=== PATIENT | male | born 1940 | race Caucasian/White ===

== ENCOUNTER 2018-06-08 10:16 | Outpatient (CLI) | payer MEDICARE, BC | END 2018-06-08 10:17 | disposition home or self-care (01) | LOC: NAV LABSP 10:16 | PROVIDERS: ATTEND Internal Medicine | DX: F03.90 Unspecified dementia, unspecified severity, without behavioral disturbance, psychotic disturbance, mood disturbance, and anxiety (principal) | CPT/HCPCS: 36415; 82140 ==

== ENCOUNTER 2018-06-15 07:55 | Outpatient (CLI) | payer MEDICARE, BC | END 2018-06-15 07:56 | disposition home or self-care (01) | LOC: NAV LABSP 07:55 | PROVIDERS: ATTEND Internal Medicine | DX: E11.69 Type 2 diabetes mellitus with other specified complication (principal); I10 Essential (primary) hypertension; G30.9 Alzheimer's disease, unspecified | CPT/HCPCS: 36415; 82140 ==

== ENCOUNTER 2018-08-08 08:16 | Outpatient (CLI) | payer MEDICARE, BC ==
[2018-08-08 08:53] LABS: Calc. Creatinine Clearance 0 mL/min (70-130)
[2018-08-08 08:54] LABS: Anion Gap 10 mmol/L (10-20); BUN (Urea Nitrogen) 13 mg/dL (8.4-25.7); Calcium 9.6 mg/dL (7.8-10.44); Carbon Dioxide 31 mmol/L (23-31); Chloride 102 mmol/L (98-107); Estimated GFR-MDRD Greater than 90; Glucose 82 mg/dL (83-110); Potassium 3.9 mmol/L (3.5-5.1); Sodium 139 mmol/L (136-145)
[2018-08-08 09:17] LABS: Bilirubin Negative (Negative); Blood, Urine Negative (Negative); Clarity Clear (Clear); Glucose, Urine (Dipstick) 250 mg/dL (Negative); Leukocyte Small (Negative); Nitrite Negative (Negative); Protein, Urine (Dipstick) Negative (Neg-Trace); Specific Gravity, Urine 1.015 (1.005-1.030); Urobilinogen 0.2 mg/dL (0.2-1.0)
[2018-08-08 09:20] LABS: #Basophils 0.2 thou/uL (0.0-0.2); #Eosinphils 1.7 thou/uL (0.0-0.7); #Lymphocytes 2.2 thou/uL (1.20-3.40); #Monocytes 1.2 thou/uL (0.11-0.59); #Neutrophils 5.1 thou/uL (1.40-6.50); %Basophils 1.7 % (0.0-1.0); %Eosinophils 16.2 % (0.0-10.0); %Lymphocytes 20.9 % (21.0-51.0); %Monocytes 11.8 % (0.0-10.0); %Neutrophils 49.4 % (42.0-75.0); Hemoglobin 13.1 g/dL (14.0-18.0); Mean Corpuscular HGB CONC 33.1 g/dL (32.0-36.0); Mean Corpuscular Hemoglobin 29.8 pg (27.0-31.0); Mean Corpuscular Volume 90.2 fL (78.0-98.0); Mean Platelet Volume 10.7 fL (7.4-10.4); Platelet Count 233 thou/uL (130-400); RBC Distribution Width 11.8 % (11.5-14.5); Red Blood Cell (RBC) Count 4.38 mill/uL (4.70-6.10); White Blood Cell (WBC) Count 10.3 thou/uL (4.8-10.8)
[2018-08-08 11:55] LABS: Bacteria/HPF Rare-Few HPF (None Seen); Other Microscopic Description NO; RBC/HPF None Seen HPF (0-3); Squamous Epithelial None Seen HPF (0-3); WBC/HPF 0-3 HPF (0-3)
[2018-08-08 12:40] LABS: Valproic Acid (Depakene) 48.3 ug/mL (50.0-100.0)
== END 2018-08-08 08:17 | disposition home or self-care (01) ==
LOC: NAV LAB 08:16
PROVIDERS: ATTEND Internal Medicine
DX: G30.9 Alzheimer's disease, unspecified (principal); E11.9 Type 2 diabetes mellitus without complications; I10 Essential (primary) hypertension
CPT/HCPCS: 36415; 80048; 80164; 81003; 81015; 82140; 85025; 87086

== ENCOUNTER 2018-09-27 14:36 | Outpatient (CLI) | payer MEDICARE, BC, MEDICAID ==
[2018-09-27 21:33] LABS: #Basophils 0.1 thou/uL (0.0-0.2); #Eosinphils 0.1 thou/uL (0.0-0.7); #Lymphocytes 2.3 thou/uL (1.20-3.40); #Monocytes 1.8 thou/uL (0.11-0.59); #Neutrophils 13.2 thou/uL (1.40-6.50); %Basophils 0.3 % (0.0-1.0); %Eosinophils 0.3 % (0.0-10.0); %Lymphocytes 13.2 % (21.0-51.0); %Monocytes 10.2 % (0.0-10.0); Hemoglobin 14.5 g/dL (14.0-18.0); Mean Corpuscular Hemoglobin 31.3 pg (27.0-31.0); Mean Platelet Volume 10.8 fL (7.4-10.4); Platelet Count 154 thou/uL (130-400); RBC Distribution Width 12.8 % (11.5-14.5); Red Blood Cell (RBC) Count 4.63 mill/uL (4.70-6.10); White Blood Cell (WBC) Count 17.4 thou/uL (4.8-10.8)
[2018-09-27 21:53] LABS: ALT (SGPT) 51 U/L (8-55); AST (SGOT) 37 U/L (5-34); Albumin 4.2 g/dL (3.4-4.8); Alkaline Phosphatase 76 U/L (40-150); Anion Gap 11 mmol/L (10-20); BUN (Urea Nitrogen) 17 mg/dL (8.4-25.7); Bilirubin, Total 0.6 mg/dL (0.2-1.2); Calc. Creatinine Clearance 0 mL/min (70-130); Carbon Dioxide 34 mmol/L (23-31); Chloride 99 mmol/L (98-107); Estimated GFR-MDRD 73; Glucose 144 mg/dL (83-110); Potassium 4.3 mmol/L (3.5-5.1); Protein, Total 7.2 g/dL (5.8-8.1); Sodium 140 mmol/L (136-145)
== END 2018-09-27 14:37 | disposition home or self-care (01) ==
LOC: NAV LABSP 14:36
PROVIDERS: ATTEND Internal Medicine
DX: G30.9 Alzheimer's disease, unspecified (principal)
CPT/HCPCS: 82140; 36415-59

== ENCOUNTER 2018-10-10 10:11 | Outpatient (CLI) | payer MEDICARE, BC, MEDICAID ==
[2018-10-10 10:39] LABS: #Basophils 0.2 thou/uL (0.0-0.2); #Eosinphils 0.8 thou/uL (0.0-0.7); #Lymphocytes 4.5 thou/uL (1.20-3.40); #Monocytes 1.2 thou/uL (0.11-0.59); #Neutrophils 2.6 thou/uL (1.40-6.50); %Basophils 1.7 % (0.0-1.0); %Eosinophils 8.6 % (0.0-10.0); %Lymphocytes 48.6 % (21.0-51.0); %Monocytes 12.7 % (0.0-10.0); %Neutrophils 28.5 % (42.0-75.0); Hemoglobin 15.2 g/dL (14.0-18.0); Mean Corpuscular HGB CONC 31.5 g/dL (32.0-36.0); Mean Corpuscular Hemoglobin 29.5 pg (27.0-31.0); Mean Corpuscular Volume 93.7 fL (78.0-98.0); Mean Platelet Volume 11.5 fL (7.4-10.4); Platelet Count 225 thou/uL (130-400); RBC Distribution Width 12.4 % (11.5-14.5); Red Blood Cell (RBC) Count 5.15 mill/uL (4.70-6.10); White Blood Cell (WBC) Count 9.2 thou/uL (4.8-10.8)
[2018-10-10 10:47] LABS: ALT (SGPT) 55 U/L (8-55); AST (SGOT) 44 U/L (5-34); Albumin 4.1 g/dL (3.4-4.8); Alkaline Phosphatase 70 U/L (40-150); Anion Gap 13 mmol/L (10-20); BUN (Urea Nitrogen) 14 mg/dL (8.4-25.7); Bilirubin, Total 0.5 mg/dL (0.2-1.2); Calc. Creatinine Clearance 0 mL/min (70-130); Calcium 10.1 mg/dL (7.8-10.44); Carbon Dioxide 27 mmol/L (23-31); Chloride 104 mmol/L (98-107); Estimated GFR-MDRD 86; Globulin 3.1 g/dL (2.4-3.5); Glucose 73 mg/dL (83-110); Potassium 4.3 mmol/L (3.5-5.1); Protein, Total 7.2 g/dL (5.8-8.1); Sodium 140 mmol/L (136-145)
[2018-10-10 12:30] LABS: Hemoglobin A1c 6.8 % (4.0-6.0)
== END 2018-10-10 10:12 | disposition home or self-care (01) ==
LOC: NAV LAB 10:11
PROVIDERS: ATTEND Internal Medicine
DX: G30.9 Alzheimer's disease, unspecified (principal); N40.1 Benign prostatic hyperplasia with lower urinary tract symptoms; I10 Essential (primary) hypertension
CPT/HCPCS: 36415; 80053; 82140; 83036; 85025

== ENCOUNTER 2018-10-31 06:25 | Outpatient (CLI) | payer MEDICARE, BC, MEDICAID ==
[2018-10-31 08:36] LABS: ALT (SGPT) 48 U/L (8-55); AST (SGOT) 36 U/L (5-34); Albumin 3.3 g/dL (3.4-4.8); Alkaline Phosphatase 52 U/L (40-150); Anion Gap 15 mmol/L (10-20); BUN (Urea Nitrogen) 18 mg/dL (8.4-25.7); Bilirubin, Total 0.5 mg/dL (0.2-1.2); Calc. Creatinine Clearance 0 mL/min (70-130); Carbon Dioxide 22 mmol/L (23-31); Chloride 106 mmol/L (98-107); Estimated GFR-MDRD Greater than 90; Globulin 2.5 g/dL (2.4-3.5); Potassium 3.8 mmol/L (3.5-5.1); Protein, Total 5.8 g/dL (5.8-8.1); Sodium 139 mmol/L (136-145)
[2018-10-31 08:46] LABS: Glucose 41 mg/dL (83-110)
[2018-10-31 08:53] LABS: Bilirubin Negative (Negative); Blood, Urine Negative (Negative); Clarity Clear (Clear); Glucose, Urine (Dipstick) Negative (Negative); Leukocyte Negative (Negative); Nitrite Negative (Negative); Protein, Urine (Dipstick) Negative (Neg-Trace); Specific Gravity, Urine 1.015 (1.005-1.030)
[2018-10-31 08:54] LABS: Urine Culture Reflex No No
[2018-10-31 09:38] LABS: Hemoglobin 12.7 g/dL (14.0-18.0); MDiff Complete? YES; Mean Corpuscular HGB CONC 32.6 g/dL (32.0-36.0); Mean Corpuscular Hemoglobin 30.3 pg (27.0-31.0); Mean Corpuscular Volume 93.2 fL (78.0-98.0); Mean Platelet Volume 9.4 fL (7.4-10.4); Platelet Count 158 thou/uL (130-400); RBC Distribution Width 12.7 % (11.5-14.5); Red Blood Cell (RBC) Count 4.19 mill/uL (4.70-6.10); White Blood Cell (WBC) Count 8.6 thou/uL (4.8-10.8)
[2018-10-31 09:39] LABS: Eosinophils 1 % (0-10); Lymphocytes 34 % (21-51); Monocytes 18 % (0-10); Neutrophil 47 % (42-75); Platelet Morphology Comment Appears Adequate
== END 2018-10-31 06:26 | disposition home or self-care (01) ==
LOC: NAV LABSP 06:25
PROVIDERS: ATTEND Student in an Organized Health Care Education/Training Program
DX: G30.9 Alzheimer's disease, unspecified (principal)
CPT/HCPCS: 36415; 80053; 81003; 82140; 84443; 85025

== ENCOUNTER 2018-12-19 06:43 | Outpatient (CLI) | payer MEDICARE, BC ==
[2018-12-19 07:05] LABS: Anion Gap 15 mmol/L (10-20); BUN (Urea Nitrogen) 12 mg/dL (8.4-25.7); Calc. Creatinine Clearance 0 mL/min (70-130); Carbon Dioxide 24 mmol/L (23-31); Chloride 106 mmol/L (98-107); Estimated GFR-MDRD 90; Glucose 211 mg/dL (83-110); Potassium 3.7 mmol/L (3.5-5.1); Sodium 141 mmol/L (136-145)
[2018-12-19 07:06] LABS: Calcium 9.6 mg/dL (7.8-10.44)
[2018-12-19 07:17] LABS: Bilirubin Negative (Negative); Blood, Urine Negative (Negative); Clarity Clear (Clear); Glucose, Urine (Dipstick) 100 mg/dL (Negative); Leukocyte Negative (Negative); Nitrite Negative (Negative); Protein, Urine (Dipstick) Negative (Neg-Trace); Specific Gravity, Urine 1.015 (1.005-1.030); Urobilinogen 0.2 mg/dL (0.2-1.0); pH, Urine 7.5 (5.0-9.0)
[2018-12-19 07:25] LABS: Bacteria/HPF None Seen HPF (None Seen); RBC/HPF None Seen HPF (0-3); Squamous Epithelial None Seen HPF (0-3); WBC/HPF None Seen HPF (0-3)
[2018-12-19 12:01] LABS: Valproic Acid (Depakene) 63.2 ug/mL (50.0-100.0)
== END 2018-12-19 06:44 | disposition home or self-care (01) ==
LOC: NAV LAB 06:43
PROVIDERS: ATTEND Internal Medicine
DX: R45.1 Restlessness and agitation (principal)
CPT/HCPCS: 36415; 80048; 80164; 81001; 82140; 84443